=== PATIENT | female | born 1955 | race Caucasian/White ===

== ENCOUNTER → 2016-09-09 | Outpatient (CLI) | payer OTHER | END | disposition home or self-care (01) | LOC: RADMRIMAIN 09:29 | PROVIDERS: ATTEND Family Medicine | DX: Z53.9 Procedure and treatment not carried out, unspecified reason (principal) ==

== ENCOUNTER → 2017-03-14 | Outpatient (CLI) | payer OTHER ==
[2017-03-09 14:48] VITALS: BMI 54.1
[2017-03-14 12:14] VITALS: BP 121/68; PULSE 95; RESP 18; TEMP 98.9
--- NOTE | 2017-03-14 13:12 | P.HPIM ---
History of Present Illness H&P Date: 03/14/17 Chief Complaint: low back pain This is a 61-year-old patient referred by Dr. Lopez for chronic pain in low back without radiation to legs. Patient has been taking medications from primary care physician with some relief. Patient denies adverse drug effects from medications. Patient also denies new-onset weakness, bowel/bladder incontinence, or any other signs or symptoms of cauda equina syndrome. There are no signs of acute intoxication, and no indications of medication diversion or overuse. Patient notes that pain worsens significantly with standing straight and extension of the lumbar spine, and improves with rest, ice, and medication. Patient has used several types of medications for pain, including NSAIDS, OPIOIDS, TRAMADOL, ANTIDEPRESSANTS, and BENZODIAZEPINES. Patient HAS NOT had surgery. Patient HAS NOT had injections previously. Patient HAS had physical therapy recently. In addition to above, 13-point review of systems is also negative for chest pain , shortness of breath, changes in vision, changes in hearing, new onset weakness , abdominal pain, diarrhea, extreme fatigue, malaise, fever, skin changes, homicidal or suicidal ideation, or bowel or bladder incontinence. Vital Signs: Reviewed in EMR Gen: WDWN, AAOx3, NAD HEENT: NCAT, EOMI, hearing grossly normal Pulm: resp unlabored Abd: soft, NT, ND, obese Neck: supple, trachea midline ROM in flexion lumbar spine: reduced ROM in extension lumbar spine: reduced Lumbar paravertebral tenderness: + Facet loading: + bilateral, L > R SI joint tenderness: + L > R Fan's test: + L > R Straight leg raise: neg Neuro: CN II-XII grossly intact, muscle strength lower extremities PRESERVED Past Medical History Past Medical History: Diabetes Mellitus, GERD/Reflux, Hypertension, Pneumonia Additional Past Medical History / Comment(s): heart murmer, severe back pain History of Any Multi-Drug Resistant Organisms: None Reported Past Surgical History: Appendectomy, Tubal Ligation Additional Past Surgical History / Comment(s): bassam cataracts Past Anesthesia/Blood Transfusion Reactions: Motion Sickness Past Psychological History: No Psychological Hx Reported Smoking Status: Former smoker Past Alcohol Use History: None Reported Additional Past Alcohol Use History / Comment(s): quit smoking 25 yrs ago, started smoking age 18, < 1PPD Past Drug Use History: None Reported - Past Family History Father Family Medical History: Cancer Medications and Allergies Home Medications Medication Instructions Recorded Confirmed Type Albuterol Inhaler [Ventolin Hfa 2 puff INHALATION TID PRN 03/09/17 03/14/17 History Inhaler] Aspirin [Adult Low Dose Aspirin EC] 81 mg PO DAILY 03/09/17 03/14/17 History Cyclobenzaprine [Flexeril] 10 mg PO HS 03/09/17 03/14/17 History Fluticasone Propionate [Flovent 50 mcg INHALATION QAM 03/09/17 03/14/17 History Diskus] Ibuprofen 600 mg PO TID PRN 03/09/17 03/14/17 History Insulin Glargine [Lantus] 90 unit SQ HS 03/09/17 03/14/17 History Lisinopril-Hctz 20-25 mg 1 tab PO DAILY 03/09/17 03/14/17 History [Zestoretic 20-25] Lovastatin [Mevacor] 10 mg PO HS 03/09/17 03/14/17 History Pregabalin [Lyrica] 100 mg PO TID 03/09/17 03/14/17 History glipiZIDE [Glucotrol] 10 mg PO AC-BID 03/09/17 03/14/17 History metFORMIN HCL 1,000 mg PO BID 03/09/17 03/14/17 History Allergies Allergy/AdvReac Type Severity Reaction Status Date / Time No Known Allergies Allergy Verified 03/14/17 12:00 Physical Exam Vitals: Vital Signs Temp Pulse Resp BP 03/14/17 12:01 98.9 F 95 18 121/68 Results Comments: MRI lumbar spine dated May 2016 demonstrates a circumferential disc bulge of the annulus fibrosis of the L4-L5 level. At the L3-L4, L4-L5, and L5-S1 levels there are hypertrophic changes at the posterior facets. There is spondylolisthesis at the L3-L4 level with also a posterior pseudo-disc at this level as well. There is subarticular recess stenosis at the level of the L3 vertebra. Assessment and Plan (1) Lumbar spondylosis Current Visit: Yes Status: Chronic Code(s): M47.816 - SPONDYLOSIS W/O MYELOPATHY OR RADICULOPATHY, LUMBAR REGION SNOMED Code(s): 939100220 (2) Bulging lumbar disc Current Visit: Yes Status: Chronic Code(s): M51.26 - OTHER INTERVERTEBRAL DISC DISPLACEMENT, LUMBAR REGION SNOMED Code(s): 295590769 Plan: Plan: 1. Explanation: Opioid and psychological risk scores were reviewed. Diagnoses , prognoses, and multiple treatment options including but not limited to physical therapy, interventional therapies, adjuvant medical therapies, narcotic medication therapies, and surgery were discussed with the patient and all questions were answered to the patient's satisfaction. 2. Opioid agreement: no opioids prescribed today 3. Counseling: The patient was counseled extensively on BODY MASS INDEX, EXERCISE. Specifically, the patient was instructed regarding the importance of weight control, and exercise in the context of both chronic pain and overall health. 4. Procedures: bilateral lumbar MBB 5. Consultations: Dr. Swenson for possible bariatric surgery given patient's diabetes and severe low back pain 6. Investigations: none 7. Medications: none prescribed 8. Disposition: f/u for procedure as scheduled PQRS measures: 1-Patient's medications are documented in the chart. 2-Tobacco use is negative 3-Patient has not had a pneumococcal vaccine. 4-Advanced care planning discussed, patient unable to give. 5-Opioid contract NOT signed with the patient. 6-Pain positive, follow-up visit or procedure scheduled 7-Patient's blood pressure measured and documented, and WNL. 8-Patient's weight was measured, and body mass index ABOVE the normal limits, and counseling was done. Patient instructed to follow up with PCP. 9-Patient WAS NOT identified as an unhealthy alcohol user. Time with Patient: Greater than 30
== END | disposition home or self-care (01) ==
LOC: PNWHC3 11:23
PROVIDERS: ATTEND Anesthesiology
DX: G89.29 Other chronic pain (principal); M51.26 Other intervertebral disc displacement, lumbar region; M47.816 Spondylosis without myelopathy or radiculopathy, lumbar region; I10 Essential (primary) hypertension; E11.9 Type 2 diabetes mellitus without complications; Z79.4 Long term (current) use of insulin; Z87.891 Personal history of nicotine dependence
CPT/HCPCS: 99211

== ENCOUNTER 2017-03-27 08:41 | Day surgery (SDC) | payer OTHER ==
[2017-03-23 14:21] VITALS: BMI 54.7
[2017-03-27 09:22] VITALS: RESP 20; TEMP 98.1
[2017-03-27 09:35] LABS: Glucose,Whole Blood 140 mg/dL (75-99)
[2017-03-27] MEDS ORDERED: LACTATED RINGERS 1,000 ML IV ONE (09:37)
[2017-03-27] MEDS ORDERED: LACTATED RINGERS 1,000 ML IV SCH (09:45)
[2017-03-27] MEDS ORDERED: IV FLUID CONTINUATION 1,000 ML IV ONE (10:23)
[2017-03-27 10:30] LABS: Glucose,Whole Blood 119 mg/dL (75-99)
[2017-03-27 10:54] VITALS: BP 126/74; PULSE 88
--- NOTE | 2017-03-27 11:54 | FL ---
EXAMINATION TYPE: FL guided pain mgmt statistic DATE OF EXAM: 03/27/2017 CLINICAL HISTORY: Low back pain. TECHNIQUE: Fluoroscopy. COMPARISON: None. FINDINGS: Fluoroscopic guidance was provided during pain relief procedure performed by Dr. De La Cruz . A total of 26 seconds of fluoroscopic time was utilized during the procedure and 6 spot images are ac quired. Images acquired shows needle localization at multiple levels bilaterally in the lower lumbar spine. IMPRESSION: As Above.
--- NOTE | 2017-03-27 12:35 | P.PCN ---
Date of Procedure: 03/27/17 Surgeon: Fabiano De La Cruz Pathology: none sent Condition: stable Disposition: PACU Description of Procedure: PREOPERATIVE DIAGNOSIS: L3-L4, L4-L5, and L5-S1 spondylosis without myelopathy and facet arthropathy. POSTOPERATIVE DIAGNOSIS: L3-L4, L4-L5, and L5-S1 spondylosis without myelopathy and facet arthropathy. PROCEDURE DESCRIPTION: Patient presents for L3-L4, L4-L5 and L5-S1 diagnostic medial branch blocks under fluoroscopic guidance. The procedure is performed using fluoroscopic guidance during needle placement to assure proper position and maximize safety. ANESTHESIA: Local with 1% lidocaine; conscious sedation EBL: Minimal PROCEDURE INDICATION: Patient with lumbar facet arthropathy signs and symptoms, here for diagnostic medial branch block. Pt does not take any blood thinning medications. PROCEDURE DESCRIPTION: The patient was seen and identified in the preoperative area. Risks, benefits, complications, and alternatives were discussed with the patient (including but not limited to incomplete pain relief, bleeding, infection, nerve damage, and allergies to medications), the patient agreed to proceed with the procedure and signed the consent after all questions were answered. Patient was taken to the OR and time out was completed to verify proper patient, position, laterality of pain, and allergies. Pt was placed in the prone position and a pillow was placed under the abdomen to reduce lumbar lordosis. The lumbosacral area was prepped and draped in the usual sterile fashion. Using oblique fluoroscopy, the eye of the "Gordon dog" of right L4 vertebral body, which corresponds to the path of the medial branch originating from the level above, which is L3 in this case, was identified. Subsequently, a 22-gauge 5-inch spinal needle was inserted under fluoroscopic guidance toward the eye of the "Gordon dog" of the right L4 vertebral body, corresponding to the junction of the superior articular process and the transverse process of the pedicle of the same level. After needle tip confirmation on lateral view and after negative aspiration for CSF and blood and without paresthesias, 1 mL of a 6 ml solution of 0.5% preservative-free bupivacaine and 40 mg Kenalog was injected. Subsequently the needle was withdrawn intact and the same procedure was repeated for the right L4, right L5, left L3, left L4, and left L5 medial branches which together with right L3 medial branch correspond to the sensory innervation of the bilateral L3-L4, L4-L5, and L5-S1 facet joints. Needle was withdrawn intact after each injection. At the end of the procedure, the skin was cleansed and bandages were applied. COMPLICATIONS: None. DISPOSITION/PLAN: The patient taken to the recovery area after the procedure in a stable condition for observation. Patient was reexamined prior to discharge and there were no issues. Patient was discharged home, accompanied by an adult, after meeting discharged criteria. Discharge instructions were give to the patient by the staff. Patient was specifically instructed not to drive today and to rest for the rest of the day. If relief, plan to repeat LMBB bilateral at next visit.
== END 2017-03-27 11:06 | disposition home or self-care (01) ==
LOC: ORPAIN 08:41
PROVIDERS: ATTEND Anesthesiology
DX: G89.29 Other chronic pain (principal); M51.26 Other intervertebral disc displacement, lumbar region; M47.816 Spondylosis without myelopathy or radiculopathy, lumbar region; E11.9 Type 2 diabetes mellitus without complications; K21.9 Gastro-esophageal reflux disease without esophagitis; I10 Essential (primary) hypertension; Z79.82 Long term (current) use of aspirin; Z79.4 Long term (current) use of insulin; Z79.51 Long term (current) use of inhaled steroids; Z79.899 Other long term (current) drug therapy; Z87.891 Personal history of nicotine dependence
CPT/HCPCS: 64494; 64493; 64495; J2250; J3301; J2001

== ENCOUNTER 2017-04-20 08:47 | Day surgery (SDC) | payer OTHER ==
[2017-04-14 14:32] VITALS: BMI 53.6
[2017-04-20 09:34] VITALS: TEMP 97
[2017-04-20] MEDS: LACTATED RINGERS 1,000 ML IV SCH ×2 (09:38→09:56)
[2017-04-20 09:55] LABS: Glucose,Whole Blood 181 mg/dL (75-99)
--- NOTE | 2017-04-20 10:22 | P.PCN ---
Date of Procedure: 04/20/17 Procedure(s) Performed: PREOPERATIVE DIAGNOSIS : 1- Lumbar spondylosis with Facet Arthropathy without myelopathy . 2- Lumber degenerative disc disease POSTOPERATIVE DIAGNOSIS: 1- Lumbar spondylosis with Facet Arthropathy without myelopathy . 2- Lumber degenerative disc disease PROCEDURE: Diagnostic bilateral L3 -4 , L4 -5 , and L5-S1 medial branch block under fluoroscopy ANESTHESIA: Local with 1% lidocaine 6 ml , moderate sedation with intravenous Versed 2 mg and Fentanyl 50 mcg. EBL: Minimal COMPLICATION: None. IV FLUIDS: 100 mL of normal saline. PROCEDURE INDICATION: Chronic low back pain secondary to Facet arthropathy unresponsive to conservative treatment. PROCEDURE DESCRIPTION: the patient was seen and identified in the preop holding area , risks and benefits and possible complications of the procedure and alternative were discussed with the patient, and the patient agreed to proceed with the procedure and signed the consent IV was started and vital signs monitored during the procedure and fluoroscopy was used to maximize the benefit and accuracy of the needle placement, and sedation was given to decrease patient anxiety, patient was taken to the procedure room and placed in prone position vital signs monitored in the back prepped with chlorhexidine X3 then under strict sterile technique using a right oblique fluoroscopy ,the junction of the transverse process and the superior articulating process of the right L3- 4 , L4- 5, and L5-S1 vertebra which corresponding to the fluoroscopy image of the eye of the Gordon dog on the block side for the medial branches and subsequently , after local infiltration of skin and subcu tissuies with lidocaine 1% one mL at each level ,then 22- gauge 5 inches Quincke-type needles , 3 needle was used , each one of them placed at the junction of the base of the transverse process and the superior articular process at the appropriate level, and the needle was advanced until the periosteum contacted, needle placement confirmed with AP oblique and lateral view and after appropriate needle placement confirmed, and after negative aspiration for heme and CSF and there was no paresthesia 1-1/2 mL of Marcaine 0.5% mixed with 20 mg Kenalog , then half mL injected at each level after negative aspiration the needle subsequently removed and the same procedure repeated for the left side at left side at L3-4, L4- 5 and L5-S1 levels. At the end of the procedure and the needles removed and a bandage applied after the skin was cleaned the cleaning solution patient taken to recovery room in stable condition and monitors in the recovery room for 20-30 minutes and discharged home in stable condition after discharge criteria met and patient will follow up with the pain clinic in 2-4 weeks
[2017-04-20] MEDS ORDERED: IV FLUID CONTINUATION 1,000 ML IV ONE (10:31)
[2017-04-20 10:35] LABS: Glucose,Whole Blood 172 mg/dL (75-99)
[2017-04-20 10:41] VITALS: BP 122/70; PULSE 95; RESP 18
--- NOTE | 2017-04-20 10:43 | FL ---
Fluoroscopy INDICATION: Pain FINDINGS: Fluoroscopy time: 18 seconds. Images obtained: 4. IMPRESSIONS: 1. Documentation of fluoroscopy.
== END 2017-04-20 10:59 | disposition home or self-care (01) ==
LOC: ORPAIN 08:47
PROVIDERS: ATTEND Specialist
DX: G89.29 Other chronic pain (principal); M51.36 Other intervertebral disc degeneration, lumbar region; M47.816 Spondylosis without myelopathy or radiculopathy, lumbar region; E66.01 Morbid (severe) obesity due to excess calories; E11.9 Type 2 diabetes mellitus without complications; Z68.43 Body mass index [BMI] 50.0-59.9, adult
CPT/HCPCS: 64493; 64494; 64495; J2250; J3301; J3010; 99152

== ENCOUNTER → 2017-05-16 | Outpatient (CLI) | payer OTHER ==
[2017-05-16 11:24] VITALS: BP 134/67; PULSE 96; RESP 18; TEMP 97.6
--- NOTE | 2017-05-16 12:03 | P.PN ---
Subjective Progress Note Date: 05/16/17 Principal diagnosis: Lumbar spondylosis without myelopathy This is a 62-year-old morbidly obese female with history of axial lower back pain with no radiation to the lower extremities. The patient had significant relief of her pain more than 80% after the diagnostic lumbar medial branch block that she had recently. She denies any new neurologic changes since last time she was seen. Objective - Vital Signs Vital signs: Vital Signs Temp 97.6 F 05/16/17 11:16 Pulse 96 05/16/17 11:16 Resp 18 05/16/17 11:16 BP 134/67 05/16/17 11:16 Pulse Ox 96 05/16/17 11:16 Intake & Output 05/15/17 05/16/17 05/16/17 18:59 06:59 18:59 Weight 144.696 kg - Constitutional General appearance: Present: morbidly obese - EENT Eyes: Present: PERRLA - Respiratory Respiratory: bilateral: CTA - Cardiovascular Rhythm: regular - Psychiatric Psychiatric: Present: A&O x's 3, appropriate affect, intact judgment & insight ( Tenderness in the lumbar paravertebral area bilaterally.) Assessment and Plan Plan: This is a 62-year-old diabetic morbidly obese female who got significant relief of her pain after a diagnostic medial branch block. The patient is willing to proceed with the lumbar medial branch radio frequency ablation on the left side first. The procedure was explained to the patient and her questions were answered. The patient denies taking any anticoagulants and she has a history of diabetes.
== END | disposition home or self-care (01) ==
LOC: PNWHC3 10:36
PROVIDERS: ATTEND Anesthesiology
DX: M47.816 Spondylosis without myelopathy or radiculopathy, lumbar region (principal); E11.9 Type 2 diabetes mellitus without complications; E66.01 Morbid (severe) obesity due to excess calories; Z68.43 Body mass index [BMI] 50.0-59.9, adult
CPT/HCPCS: 99211

== ENCOUNTER 2017-06-15 09:01 | Day surgery (SDC) | payer OTHER ==
[2017-06-12 15:25] VITALS: BMI 56.7
[2017-06-15] MEDS ORDERED: LIDOCAINE 1% 20 ML VIAL (10MG/ML) FOR IV START INTRADERMA ONE (10:52)
[2017-06-15] MEDS: LACTATED RINGERS 1,000 ML IV SCH ×2 (11:08→11:25)
[2017-06-15 11:09] VITALS: RESP 16; TEMP 97.5
[2017-06-15 11:13] LABS: Glucose,Whole Blood 164 mg/dL (75-99)
--- NOTE | 2017-06-15 11:54 | P.PCN ---
Date of Procedure: 06/15/17 Procedure(s) Performed: PREOPERATIVE DIAGNOSIS: 1-Lumbar Spondylosis with Facet Arthropathy without myelopathy. 2- Lumber degenerative disc disease. POSTOPERATIVE DIAGNOSIS: 1- Lumbar Spondylosis with Facet Arthropathy without myelopathy. 2- Lumber degenerative disc disease. PROCEDURES : Left Radiofrequency thermocoagulation, L3-L4, L4-L5, and L5-S1 medial branch, with fluoroscopic guidance ANESTHESIA: Moderate sedation with intravenous versed 2 mg and fentaneyl 50 mcg and local infiltration with lidocaine 1% 6 ml EBL: Minimal PROCEDURE INDICATION: The patient with low back pain secondary to lumbar facet arthropathy who had more than 50% relief of her pain with previous diagnostic lumbar medial branch block with bupivacaine. PROCEDURE DESCRIPTION / TECHNIQUE: The patient was seen and identified in the preoperative area. Risks, benefits, complications, including but not limited to risk of infection ,bleeding , allergic reactions to the medications and no complete pain releife , and alternatives were discussed with the patient, the patient agreed to proceed with the procedure and signed the consent. IV was started. Vital signs remained stable throughout the procedure. Patient was taken to the OR and time out was completed. The patient was placed in the prone position on the procedure table. The lumber area was prepped and draped in the usual sterile fashion. . Vital signs were closely monitored during the procedure .IV sedation was used during the procedure to decrease patients anxiety. Using AP and then oblique fluoroscopy, the ``eye of the Gordon dog corresponding to the connection between the superior and transverse articular processes of left L3, L4, and L5 were identified, marked, and localized with 1 % lidocaine. Subsequently, a 18 [id number] radiofrequency cannula with a 10- mm active tip was advanced guided by fluoroscopy to each of the ``eyes of the Gordon dog at left L3, L4, and L5. Each site then underwent sensory testing at 50 Hz and 0 to 1 volt and motor testing at 2.5 Hz and 0 to 3 volt with local stimulation, but no radicular symptoms down the legs. Thereafter the left L3-4, L4-5, and L5-S1 sites underwent radiofrequency thermocoagulation at 80 degrees celsius for 90 seconds after injecting 0.5 ml of PF lidocaine 1%. then After the thermocoagulation done , 1 ml of the block solution containing Kenalog 40 mg and 3 ml of marcain 0.5% was injected at the left L3-4 , L4-5 , and L5-S1, levels after negative aspiration of CSF and blood and with no paresthesias. Cannulas were retracted while injecting lidocaine 1% until the needle is out. At the end of the procedure, the skin was cleansed and bandages were applied. COMPLICATIONS: No acute complications. DISPOSITION / PLANS: The patient was placed in a supine position and transferred to the recovery area in a stable condition for observation and was discharged from the recovery room after meeting discharge criteria. Home discharge instructions given to the patient by the staff. The patient was reexamined prior to discharge. The patient will schedule a follow up in the clinic in 2-4 weeks.
[2017-06-15] MEDS ORDERED: IV FLUID CONTINUATION 1,000 ML IV ONE (12:06)
--- NOTE | 2017-06-15 12:13 | FL ---
Fluoroscopy INDICATION: Pain FINDINGS: Fluoroscopy time: 28 seconds. Images obtained: 3. IMPRESSIONS: 1. Documentation of fluoroscopy.
[2017-06-15 12:22] VITALS: BP 135/64; PULSE 80
== END 2017-06-15 12:37 | disposition home or self-care (01) ==
LOC: ORPAIN 09:01
PROVIDERS: ATTEND Specialist
DX: M47.816 Spondylosis without myelopathy or radiculopathy, lumbar region (principal); I10 Essential (primary) hypertension; E11.9 Type 2 diabetes mellitus without complications; K21.9 Gastro-esophageal reflux disease without esophagitis; M51.36 Other intervertebral disc degeneration, lumbar region
CPT/HCPCS: 64636 ×2; 64635; J2250; J3301; J3010; 99152

== ENCOUNTER 2017-07-17 09:23 | Day surgery (SDC) | payer OTHER ==
[2017-07-12 10:18] VITALS: BMI 56.5
[2017-07-17 10:11] VITALS: RESP 16; TEMP 98.2
[2017-07-17] MEDS ORDERED: LACTATED RINGERS 1,000 ML IV SCH (10:15)
[2017-07-17 10:32] LABS: Glucose,Whole Blood 217 mg/dL (75-99)
[2017-07-17] MEDS ORDERED: IV FLUID CONTINUATION 1,000 ML IV ONE (11:14)
[2017-07-17 11:24] LABS: Glucose,Whole Blood 193 mg/dL (75-99)
[2017-07-17 11:37] VITALS: BP 100/64; PULSE 94
--- NOTE | 2017-07-17 11:38 | FL ---
EXAMINATION TYPE: FL guided pain mgmt statistic DATE OF EXAM: 07/17/2017 HISTORY: Pain 1 image scanned 3secs fl time
--- NOTE | 2017-07-25 15:27 | P.PCN ---
Date of Procedure: 07/17/17 Surgeon: Kenny Lanza Description of Procedure: Procedure(s) Performed: PREOPERATIVE DIAGNOSIS: 1. Lumbar Spondylosis with Facet Arthropathy without myelopathy. 2-. Lumber degenerative disc disease POSTOPERATIVE DIAGNOSIS: 1. Lumbar Spondylosis with Facet Arthropathy without myelopathy. 2-. Lumber degenerative disc disease PROCEDURES: Right Radiofrequency thermocoagulation, L4,L5, Sacral Ala medial branch, with fluoroscopic guidance SURGEON: Kenny Lanza MD. ANESTHESIA: Moderate sedation with intravenous versed 2 mg and fentanyl 100 mcg and local infiltration with lidocaine 1% 4 ml EBL: Minimal PROCEDURE INDICATION: The patient with low back pain secondary to lumbar facet arthropathy who had more than 50% relief of pain with previous diagnostic lumbar medial branch block with bupivacaine. PROCEDURE DESCRIPTION / TECHNIQUE: The patient was seen and identified in the preoperative area. Risks, benefits, complications, including but not limited to risk of infection ,bleeding , allergic reactions to the medications and no complete pain releife , and alternatives were discussed with the patient, the patient agreed to proceed with the procedure and signed the consent. IV was started. The operative site was marked. Patient was taken to the OR and time out was completed. The patient was placed in the prone position on the procedure table. The lumber area was prepped and draped in the usual sterile fashion. . Vital signs were closely monitored during the procedure .IV sedation was used during the procedure to decrease patients anxiety. Using AP and then oblique fluoroscopy, the ``eye of the Gordon dog corresponding to the connection between the superior and transverse articular processes of the above-mentioned levels were identified, marked, and localized with 1% lidocaine. Subsequently, a [id number] radiofrequency cannula with a 10-mm active tip was advanced guided by fluoroscopy to each of the ``eyes of the Gordon dog at each site then underwent sensory testing at 50 Hz and 0 to 1 volt and motor testing at 2.5 Hz and 0 to 3 volt with local stimulation, but no radicular symptoms down the legs. Then the sites underwent radiofrequency thermocoagulation at 80 degrees celsius for 90 seconds after injecting 0.5 ml of PF lidocaine 1%. then After the thermocoagulation done , 1 ml of the block solution containing depomedrol 40 mg and 4 ml of maraine 0.5 % was injected at each levels after negative aspiration of CSF and blood and with no paresthesias. Cannulas were retracted while injecting lidocaine 1% until the needle is out.. At the end of the procedure, the skin was cleansed and bandages were applied. COMPLICATIONS: No acute complications. DISPOSITION / PLANS: The patient was placed in a supine position and transferred to the recovery area in a stable condition for observation and was discharged from the recovery room after meeting discharge criteria. Home discharge instructions given to the patient by the staff. The patient was reexamined prior to discharge. She will follow-up for reevaluation as needed..
== END 2017-07-17 11:46 | disposition home or self-care (01) ==
LOC: ORPAIN 09:23
PROVIDERS: ATTEND Pain Medicine Pain Medicine
DX: M47.816 Spondylosis without myelopathy or radiculopathy, lumbar region (principal); M51.36 Other intervertebral disc degeneration, lumbar region; I10 Essential (primary) hypertension; E11.9 Type 2 diabetes mellitus without complications; K21.9 Gastro-esophageal reflux disease without esophagitis
CPT/HCPCS: 64635; 64636; J2250; J1030; J2001; J3010; 99152

== ENCOUNTER → 2017-07-26 | Outpatient (CLI) | payer OTHER ==
--- NOTE | 2017-07-26 14:39 | US ---
EXAMINATION TYPE: US transvaginal DATE OF EXAM: 07/26/2017 COMPARISON: NONE CLINICAL HISTORY: N95.0 Postmenopausal Bleeding x 2 months; ; Diabetes, HTN; Ht5'2,[id number] TECHNIQUE: Transvaginal (TV per order Date of LMP: at age 48 EXAM MEASUREMENTS: Uterus: 14.1 x 10.1 x 10.9cm Endometrial Stripe: 2.5cm Right Ovary: not seen Left Ovary: not seen Exam is technically limited due to large body habitus. 1. Uterus: enlarged; heterogeneous myometrium; multiple Nabothian cysts in cervix with largest = 1.2 x 0.9 x 0.8cm 2. Endometrium: irregular borders, heterogeneous appearance, abnormally thickened for postmenopause. 3. Right Ovary: not seen 4. Left Ovary: not seen 5. Bilateral Adnexa: wnl 6. Posterior cul-de-sac: wnl IMPRESSION: 1. Nabothian cysts. 2. Nonvisualization of the ovaries.
== END | disposition home or self-care (01) ==
LOC: RADUSWWP 10:58
PROVIDERS: ATTEND Family Medicine
DX: N88.8 Other specified noninflammatory disorders of cervix uteri (principal)
CPT/HCPCS: 76830

== ENCOUNTER → 2017-08-14 | Outpatient (CLI) | payer MEDICARE, OTHER ==
[2017-08-14 14:05] VITALS: BP 133/68; PULSE 100; RESP 20
--- NOTE | 2017-08-14 14:25 | P.PAINPG ---
Subjective Progress Note Date: 08/14/17 This is follow-up visit for this patient with a history of severe and chronic low back pain secondary to , lumbar spondylosis with facet arthropathy without myelopathy, We have done an interventional pain procedure radiofrequency ablation of the medial branch lumbar area which was done in May 2017, and June 2017 we did the radiofrequency of the medial branch on the right side, currently she is complaining of localized pain in the lumbar area on the right side, he denies any motor or sensory deficit she denies any change in the bowel movement or urination The patient currently on Flexeril 10 mg daily at bedtime Lyrica 100 mg 3 times a day and Motrin 600 mg 3 times a day from her primary care Patient denies any side effect of the medication , patient denies any excessive drowsiness or sleepiness, patient denies any suicidal ideation, Patient reported that the current medication is helping to control the pain and improve the activity of daily livings, Patient denies any motor or sensory deficit, denies any change in the bowel movement or urination, patient denies any fever or night sweats Objective - Vital Signs Vital signs: Vital Signs Temp Pulse 100 08/14/17 13:42 Resp 20 08/14/17 13:42 BP 133/68 08/14/17 13:42 Pulse Ox 95 08/14/17 13:42 Intake & Output 08/13/17 08/14/17 08/14/17 18:59 06:59 18:59 Weight 144.696 kg - Exam Physical Examinations : 1-Constitutiona : Cooperative , not in acute distress . 2-HEENT : nech ; supple , no Lymphadenopathy , normal thyroid size . eyes : no ptosis , no icterus , no photophobia . ENT : normal of hearing , normal oropharynx , no Thrush . 3- Respiratory : Chest clear to auscultations Bilaterally , no wheezing , no Rhonchi . 4- Cardiovascular : regular rate and rhythem , S1 , S2 , no S3 , no S4. 5- Gastrointestinal : abdomen soft no tenderness , bowel sounds , no organomegally . 6- Genitourinary : Defferred . 7- neurologic : Cranial nerve II to XII intact , no focal neurological deffecit . 8-psychatric : alert , oriented X 3 , appropriate affect , intact judgment and insight . 9-Lymphatic : no Lymphadenopathy . 10- musculoskeltal : , Lumber spine = normal moter stegnth lower extremities ,thigh and legs .5/5 deep tendon reflexes : normal Knee Jerk , normal ankle Jerk . 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, he could benefit from right-sided iliolumbar ligament steroid injection which will be done under fluoroscopy guidance at the earliest convenient for the patient, she should continue to use her current medication Lyrica 100 mg 3 times a day and Flexeril 10 mg daily at bedtime and Motrin 600 mg 3 times a day she is getting prescriptions from her primary care Time with Patient: Less than 30 PQRS Measure Charge Sheet Measure #130: Documentation of Current Meds in Medical Chart: Patient's medications documented in chart Measure #226: Tobacco Use: Screen & Cessation Intervention: Pt not a tobacco user Measure #111: Pneumonia Vaccination: Pneumococcal vaccine administered or previously received Measure #47: Advance Care Plan: Advance care planning discussed & documented, plan or surrogate given Measure #412: Opioid Treatment Agreement: No documentation of signed opioid treatment agreement Measure #408: Opioid Therapy Follow-up Evaluation: Patient had NO f/u eval minimum every 3 months during opioid therapy Measure #317: Preventitive Care & Scrn High Bld Press & F/U: Normal blood pressure, f/u not required Measure #128: Body Mass Index (BMI) Screening & Follow-up: BMI documented ABOVE normal parameters - f/u documented Measure #131: Pain Assessment & Follow-up: Pain positive & plan documented Measure #431: Unhealthy Alcohol Use Preventative Care & Scrn: Patient not identified as an unhealthy alcohol user PQRS Narrative: Smoking Status Former smoker Do You Want the Pneumonia Vaccine Up to Date Vaccine AT THIS TIME? Blood Pressure 133/68 Pain Intensity [Right Lower 10 Back] Scale Used Numeric (1 - 10) Hx Alcohol Use (MH) No Home Medications: Ambulatory Orders Albuterol Inhaler [Ventolin Hfa Inhaler] 2 puff INHALATION TID PRN 03/09/17 Aspirin [Adult Low Dose Aspirin EC] 81 mg PO DAILY 03/09/17 Cyclobenzaprine [Flexeril] 10 mg PO HS 03/09/17 Fluticasone Propionate [Flovent Diskus] 50 mcg INHALATION QAM 03/09/17 Ibuprofen 600 mg PO TID PRN 03/09/17 Insulin Glargine [Lantus] 90 unit SQ HS 03/09/17 Lisinopril-Hctz 20-25 mg [Zestoretic 20-25] 1 tab PO DAILY 03/09/17 Lovastatin [Mevacor] 10 mg PO HS 03/09/17 Pregabalin [Lyrica] 100 mg PO TID 03/09/17 glipiZIDE [Glucotrol] 10 mg PO AC-BID 03/09/17 metFORMIN HCL 1,000 mg PO BID 03/09/17 Insulin Aspart [NovoLOG Flexpen] 7 units SQ BID-W/MEALS 04/14/17 Controlled Substance Measures - Controlled Substance Measures Is patient prescribed a controlled substance at discharge?: No When asked, does pt state using other controlled substances?: No If prescribed controlled substance>3 days was MAPS reviewed?: No If Rx opioid, was Start Talking consent form obtained?: No If opioid is for acute pain is fill amount 7 days or less?: No Was information provided regarding opioid addiction?: No
== END | disposition home or self-care (01) ==
LOC: PNWHC3 12:24
PROVIDERS: ATTEND Specialist
DX: G89.29 Other chronic pain (principal); M47.816 Spondylosis without myelopathy or radiculopathy, lumbar region; Z98.890 Other specified postprocedural states; Z87.891 Personal history of nicotine dependence; Z79.899 Other long term (current) drug therapy; Z79.82 Long term (current) use of aspirin; Z79.1 Long term (current) use of non-steroidal anti-inflammatories (NSAID); Z79.4 Long term (current) use of insulin
CPT/HCPCS: 99211

== ENCOUNTER 2017-09-04 09:17 | Day surgery (SDC) | payer MEDICARE, OTHER ==
[2017-08-29 11:03] VITALS: BMI 56.5
[~2017-09-04 09:17] MED LIST: LACTATED RINGERS 1,000 ML IV SCH
[2017-09-04] MEDS ORDERED: LIDOCAINE 1% 20 ML VIAL (10MG/ML) FOR IV START INTRADERMA ONE (09:51)
[2017-09-04 09:54] LABS: Glucose,Whole Blood 261 mg/dL (75-99)
[2017-09-04 10:01] VITALS: RESP 18; TEMP 97.8
[2017-09-04] MEDS ORDERED: INSULIN ASPART 100 UNIT/ML 1 ML 10 ML VIAL SQ ONE (10:40)
--- NOTE | 2017-09-04 11:00 | P.PCN ---
Date of Procedure: 09/04/17 Preoperative Diagnosis: Lower back pain due to lumbar spondylosis without myelopathy, myofascial pain, morbid obesity. Postoperative Diagnosis: Same as above Anesthesia: other (Lidocaine 1% and moderate IV sedation with Versed and fentanyl) Surgeon: Lu Corley Pathology: none sent Condition: stable Disposition: PACU Description of Procedure: The patient was seen in the preop holding area consent was obtained then she was brought into the procedure 1 placed in prone position. Skin was prepped with ChloraPrep and draped in a sterile manner. Lidocaine 1% was used to numb the skin up at the target point that was identified as follows: The AP view of fluoroscopy was used to identify the transverse processes of L5 on the right side and at the line connecting the transverse process with the right iliac crest the target point was chosen then I used 5 inch 22-gauge Quincke spinal needle to go through the skin perpendicularly after contacting the iliac crest at this level then the needle walked slightly superior at the same level of the iliac crest after that I injected 5 MLS of ropivacaine 0.5% +20 mg of Kenalog.. I used an overdose of Kenalog because of the patient's history of diabetes and causing more preop blood sugar was 261 for which we gave 5 units of regular insulin subcu. The patient tolerated procedure well and was taken to PACU in stable condition. We will see the patient as a follow-up in the pain clinic in a few weeks.
[2017-09-04 11:08] VITALS: BP 130/92
[2017-09-04] MEDS ORDERED: IV FLUID CONTINUATION 1,000 ML IV ONE (11:11)
[2017-09-04 11:41] VITALS: PULSE 93
--- NOTE | 2017-09-04 12:51 | FL ---
Fluoroscopy HISTORY: Pain 6 seconds fluoroscopy time supplied to the referring clinician. 2 intraoperative C-arm images docume nt the procedure. See dictated report from anesthesia.
== END 2017-09-04 11:49 | disposition home or self-care (01) ==
LOC: ORPAIN 09:17
PROVIDERS: ATTEND Anesthesiology
DX: M47.816 Spondylosis without myelopathy or radiculopathy, lumbar region (principal); M79.1 Myalgia; E66.01 Morbid (severe) obesity due to excess calories; Z68.43 Body mass index [BMI] 50.0-59.9, adult; E11.9 Type 2 diabetes mellitus without complications; I10 Essential (primary) hypertension; Z79.4 Long term (current) use of insulin
CPT/HCPCS: 20550; J2250; J3301; J3010; 99152

== ENCOUNTER → 2017-09-15 | Outpatient (CLI) | payer MEDICARE, OTHER ==
[2017-09-15 10:09] LABS: Basophils # (A) 0.1 k/uL (0-0.2); Basophils % (A) 1 %; Eosinophils # (A) 0.4 k/uL (0-0.7); Eosinophils % (A) 4 %; HCT 42.4 % (34.0-46.0); HGB 13.5 gm/dL (11.4-16.0); Lymphocytes # (A) 3.4 k/uL (1.0-4.8); Lymphocytes % (A) 30 %; MCH 31.2 pg (25.0-35.0); MCHC 31.8 g/dL (31.0-37.0); MCV 98.1 fL (80.0-100.0); Mean Platelet Volume 7.5; Monocytes # (A) 0.6 k/uL (0-1.0); Monocytes % (A) 5 %; Neutrophils # (A) 6.7 k/uL (1.3-7.7); Neutrophils % (A) 59 %; Platelet Count 313 k/uL (150-450); RBC 4.32 m/uL (3.80-5.40); RDW 14.4 % (11.5-15.5); WBC 11.4 k/uL (3.8-10.6)
== END | disposition home or self-care (01) ==
LOC: LABPAT 09:50
PROVIDERS: ATTEND Obstetrics & Gynecology
DX: Z01.812 Encounter for preprocedural laboratory examination (principal)
CPT/HCPCS: 36415; 85025

== ENCOUNTER → 2017-09-15 | Outpatient (CLI) | payer MEDICARE, OTHER ==
--- NOTE | 2017-09-15 09:55 | XR ---
EXAMINATION TYPE: XR chest 2V DATE OF EXAM: 09/15/2017 COMPARISON: NONE HISTORY: Difficulty breathing TECHNIQUE: Frontal and lateral views of the chest are obtained. FINDINGS: There is no focal air space opacity, pleural effusion, or pneumothorax seen. The cardiac silhouette size is within normal limits. The osseous structures are intact. Moderate multilevel deg enerative changes of the thoracic spine are seen. IMPRESSION: No acute cardiopulmonary process.
== END | disposition home or self-care (01) ==
LOC: RADXRMAIN 09:32
PROVIDERS: ATTEND Family Medicine
DX: R06.02 Shortness of breath (principal)
CPT/HCPCS: 71046

== ENCOUNTER 2017-09-20 05:58 | Day surgery (SDC) | payer MEDICARE, OTHER ==
[2017-09-12 16:05] VITALS: BMI 56.5
--- NOTE | 2017-09-19 16:38 | P.HPOB ---
History of Present Illness H&P Date: 09/19/17 Chief Complaint: Postmenopausal bleeding Mitali is a 62-year-old female who has postmenopausal bleeding. Ultrasound was done through her primary care doctor that showed a grossly enlarged uterus with thickened endometrium suspicious for very least hyperplasia. Need to rule out cancer. Discussion with the patient was held in the office and at the time of our discussion the decision to do a D&C rather than endometrial biopsy was done due to her large size and positioning issues. This is also done to better evaluate the lining of the uterus and we'll plan to do a Pap smear at the same time. Risks/benefits/alternatives to this procedure were discussed with the patient in detail and all questions were answered for her prior to proceeding to the operating room. Dr. Lopez her PCP cleared her for surgery as she has multiple medical problems. She is taking multiple medications for hypertension and diabetes as well as hypercholesterolemia. Past Medical History Past Medical History: Diabetes Mellitus, GERD/Reflux, Hyperlipidemia, Hypertension, Pneumonia Additional Past Medical History / Comment(s): heart murmur, severe back pain, POST MENOPAUSAL BLEEDING History of Any Multi-Drug Resistant Organisms: None Reported Past Surgical History: Appendectomy, Tubal Ligation Additional Past Surgical History / Comment(s): bassam cataracts, PAIN CLINIC PROCEDURES. Past Anesthesia/Blood Transfusion Reactions: No Reported Reaction Smoking Status: Former smoker - Past Family History Father Family Medical History: Cancer Medications and Allergies Home Medications Medication Instructions Recorded Confirmed Type Albuterol Inhaler [Ventolin Hfa 2 puff INHALATION TID PRN 03/09/17 09/12/17 History Inhaler] Aspirin [Adult Low Dose Aspirin EC] 81 mg PO DAILY 03/09/17 09/12/17 History Cyclobenzaprine [Flexeril] 10 mg PO HS 03/09/17 09/12/17 History Fluticasone Propionate [Flovent 50 mcg INHALATION QAM 03/09/17 09/12/17 History Diskus] Ibuprofen 600 mg PO TID PRN 03/09/17 09/12/17 History Insulin Glargine [Lantus] 90 unit SQ HS 03/09/17 09/12/17 History Lisinopril-Hctz 20-25 mg 1 tab PO DAILY 03/09/17 09/12/17 History [Zestoretic 20-25] Lovastatin [Mevacor] 10 mg PO HS 03/09/17 09/12/17 History Pregabalin [Lyrica] 100 mg PO TID 03/09/17 09/12/17 History glipiZIDE [Glucotrol] 10 mg PO AC-BID 03/09/17 09/12/17 History metFORMIN HCL 1,000 mg PO BID 03/09/17 09/12/17 History Insulin Aspart [NovoLOG Flexpen] 7 units SQ BID-W/MEALS 04/14/17 09/12/17 History Allergies Allergy/AdvReac Type Severity Reaction Status Date / Time No Known Allergies Allergy Verified 09/12/17 16:02 Exam Osteopathic Statement: *. No significant issues noted on an osteopathic structural exam other than those noted in the History and Physical/Consult. - OBG Physical Exam Abdomen: Exam is somewhat limited due to morbid obesity Morbidly obese Vagina: Exam deferred until the operating room due to her morbid obesity
[~2017-09-20 05:58] MED LIST changes: +ONDANSETRON 4 MG/2 ML VIAL IVP PRN; +Pre Op ABX Message 1 EACH MISC MISCELLANE ONE; +fentaNYL (PF) 50 MCG/ML 2 ML AMP IV PRN
[2017-09-20 06:40] LABS: Glucose,Whole Blood 126 mg/dL (75-99)
[2017-09-20] MEDS ORDERED: MIDAZOLAM 2 MG/2 ML VIAL ONE (07:30)
[2017-09-20] MEDS ORDERED: KETOROLAC 30 MG/ML 1 ML VIAL ONE (07:30)
[2017-09-20] MEDS ORDERED: fentaNYL (PF) 50 MCG/ML 2 ML AMP ONE (07:30)
[2017-09-20] MEDS ORDERED: SUCCINYLCHOLINE CHLORIDE 100 MG/5 ML SYR IV ONE (07:30)
[2017-09-20] MEDS ORDERED: PHENYLEPHRINE-0.9% NACL SYG 1 MG/10 ML SYRINGE ONE (07:30)
[2017-09-20] MEDS ORDERED: PROPOFOL 10 MG/ML 20 ML VIAL IV ONE (07:30)
--- NOTE | 2017-09-20 08:11 | P.OP ---
Date of Procedure: 09/20/17 Preoperative Diagnosis: post menopausal bleeding Postoperative Diagnosis: same Procedure(s) Performed: d&c with hysteroscopy Anesthesia: WENDY Surgeon: Lobo Ibarra Estimated Blood Loss (ml): 3 Pathology: other (uterine currettings) Condition: stable Disposition: same day Operative Findings: limited visualization due to patient size and body habitus. technically very difficult procedure. no gross pathology seen with hysteroscopy Description of Procedure: Taken to O.R. where general anasthesia was adaquate. placed in dorsal lithotomy position and a bivalve speculum was needed to be able to visualize the cervix which was very posterior and had limited descent from back of vagina. Once grasped a pap smear was obtained and then it was dilated and camera was inserted but could not see all the way to fundus clearly. however, no proliferation was noted either. camera was then removed and sharp currettings of the uterus were obtained. minimal tissue was returned with currettings. lining not as thick as was reported on U/S and no evidence of polyp. once tissue was obtained it was placed on telfa paper and sent to pathology. all instruments were then removed and she was taken to recovery room in stable condition. she tolerated the procedure very well. Plan - Discharge Summary New Discharge Prescriptions: New Ibuprofen [Motrin] 600 mg PO Q6HR PRN #30 tab PRN Reason: Pain No Action Insulin Glargine [Lantus] 90 unit SQ HS Albuterol Inhaler [Ventolin Hfa Inhaler] 2 puff INHALATION TID PRN PRN Reason: sob Pregabalin [Lyrica] 100 mg PO TID Lovastatin [Mevacor] 10 mg PO HS Ibuprofen 600 mg PO TID PRN PRN Reason: Pain glipiZIDE [Glucotrol] 10 mg PO AC-BID Lisinopril-Hctz 20-25 mg [Zestoretic 20-25] 1 tab PO DAILY Cyclobenzaprine [Flexeril] 10 mg PO HS Aspirin [Adult Low Dose Aspirin EC] 81 mg PO DAILY metFORMIN HCL 1,000 mg PO BID Fluticasone Propionate [Flovent Diskus] 50 mcg INHALATION QAM Insulin Aspart [NovoLOG Flexpen] 7 units SQ BID-W/MEALS Discharge Medication List Albuterol Inhaler [Ventolin Hfa Inhaler] 2 puff INHALATION TID PRN 03/09/17 [ History] Aspirin [Adult Low Dose Aspirin EC] 81 mg PO DAILY 03/09/17 [History] Cyclobenzaprine [Flexeril] 10 mg PO HS 03/09/17 [History] Fluticasone Propionate [Flovent Diskus] 50 mcg INHALATION QAM 03/09/17 [History] Ibuprofen 600 mg PO TID PRN 03/09/17 [History] Insulin Glargine [Lantus] 90 unit SQ HS 03/09/17 [History] Lisinopril-Hctz 20-25 mg [Zestoretic 20-25] 1 tab PO DAILY 03/09/17 [History] Lovastatin [Mevacor] 10 mg PO HS 03/09/17 [History] Pregabalin [Lyrica] 100 mg PO TID 03/09/17 [History] glipiZIDE [Glucotrol] 10 mg PO AC-BID 03/09/17 [History] metFORMIN HCL 1,000 mg PO BID 03/09/17 [History] Insulin Aspart [NovoLOG Flexpen] 7 units SQ BID-W/MEALS 04/14/17 [History] Ibuprofen [Motrin] 600 mg PO Q6HR PRN #30 tab 09/20/17 [Rx] Follow up Appointment(s)/Referral(s): Lobo Ibarra DO [Doctor of Osteopathic Medicine] - 1 Week Activity/Diet/Wound Care/Special Instructions: no heavy lifting, limit stairs and driving, pelvic rest. call for any high temps , heavy bleeding, or severe pain Discharge Disposition: HOME SELF-CARE
[2017-09-20 08:33] VITALS: TEMP 97.2
[2017-09-20 08:40] LABS: Glucose,Whole Blood 113 mg/dL (75-99)
[2017-09-20 09:29] VITALS: RESP 20
[2017-09-20] MEDS ORDERED: LACTATED RINGERS 1,000 ML IV ONE (09:29)
[2017-09-20 10:02] VITALS: BP 109/63; PULSE 78
== END 2017-09-20 10:30 | disposition home or self-care (01) ==
LOC: OR 05:58
PROVIDERS: ATTEND Obstetrics & Gynecology
DX: N84.0 Polyp of corpus uteri (principal); N87.9 Dysplasia of cervix uteri, unspecified; N95.0 Postmenopausal bleeding; E11.9 Type 2 diabetes mellitus without complications; K21.9 Gastro-esophageal reflux disease without esophagitis; E78.5 Hyperlipidemia, unspecified; I10 Essential (primary) hypertension; E66.01 Morbid (severe) obesity due to excess calories; Z68.43 Body mass index [BMI] 50.0-59.9, adult; Z79.82 Long term (current) use of aspirin; Z79.51 Long term (current) use of inhaled steroids; Z79.4 Long term (current) use of insulin; Z79.899 Other long term (current) drug therapy; Z87.891 Personal history of nicotine dependence; Z98.51 Tubal ligation status; Z80.9 Family history of malignant neoplasm, unspecified
CPT/HCPCS: 58558; 81025; 88305; J2250; J2405; J3010; J1885; J2370; J0330; J2704

== ENCOUNTER → 2017-09-28 | Outpatient (CLI) | payer MEDICARE, OTHER ==
[2017-09-28 12:31] VITALS: BP 138/79; PULSE 97; RESP 20
--- NOTE | 2017-09-28 13:20 | P.PN ---
Subjective Progress Note Date: 09/28/17 Principal diagnosis: Lumbar spondylosis without myelopathy Morbid obesity Diabetes This is a 62-year-old female with history of axial lower back pain status post RFA on both sides of the spine for the medial branches. The patient's pain improves on the left side however her pain on the right side is still severe as she states, especially when she sits for a few minutes. She also failed to respond to the ileo-lumbar ligament injection. She denies any bowel or bladder dysfunction. By physical exam today she has normal muscle strength in the lower extremities and normal sensation. She has significant tenderness around the right sacroiliac joint. Objective - Vital Signs Vital signs: Vital Signs Temp Pulse 97 09/28/17 12:25 Resp 20 09/28/17 12:25 BP 138/79 09/28/17 12:25 Pulse Ox 94 L 09/28/17 12:25 Intake & Output 09/27/17 09/28/17 09/28/17 18:59 06:59 18:59 Weight 144.696 kg - EENT Eyes: Present: PERRLA - Respiratory Respiratory: bilateral: CTA - Cardiovascular Rhythm: regular Heart sounds: normal: S1, S2 - Neurologic Neurologic: Present: CNII-XII intact - Psychiatric Psychiatric: Present: A&O x's 3, appropriate affect, intact judgment & insight Assessment and Plan Plan: The patient may have right sacroiliitis and I will schedule her to have right sacroiliac joint steroid injection under fluoroscopic guidance.
== END | disposition home or self-care (01) ==
LOC: PNWHC3 11:21
PROVIDERS: ATTEND Anesthesiology
DX: M46.1 Sacroiliitis, not elsewhere classified (principal); Z98.890 Other specified postprocedural states
CPT/HCPCS: 99211

== ENCOUNTER 2017-10-25 09:26 | Day surgery (SDC) | payer MEDICARE, OTHER ==
[2017-10-09 11:28] VITALS: BMI 56.5
[~2017-10-25 09:26] MED LIST changes: -ONDANSETRON 4 MG/2 ML VIAL IVP PRN; -Pre Op ABX Message 1 EACH MISC MISCELLANE ONE; -fentaNYL (PF) 50 MCG/ML 2 ML AMP IV PRN
[2017-10-25 10:05] VITALS: RESP 16; TEMP 97.6
[2017-10-25] MEDS ORDERED: LIDOCAINE 1% 20 ML VIAL (10MG/ML) FOR IV START INTRADERMA ONE (10:06)
[2017-10-25 10:09] LABS: Glucose,Whole Blood 204 mg/dL (75-99)
--- NOTE | 2017-10-25 11:47 | P.PCN ---
Date of Procedure: 10/25/17 Procedure(s) Performed: Preoperative diagnoses= 1-Right sacroiliitis. 2-lumbar spondylosis with lumbar facet arthropathy. Postoperative diagnoses= same as preoperative diagnosis. Procedure= Right sacroiliac joint steroid injection under fluoroscopic guidance. Anesthesia= moderate sedation with Versed 2 mg and fentanyl 50 micrograms and local infiltration with lidocaine 1% 4 ml Estimated blood loss=minimal. Procedure indication= the patient had a history of severe chronic low back pain , diagnosed with sacroiliitis and lumbar sacral facet arthropathy unresponsive to conservative treatment. Procedure description= the patient was seen and identified in the preoperative holding area, risks and benefits and alternative of the procedure and possible complications discussed with the patient, and he agreed with the preceding, patient signed the consent, an IV was started, and vital signs were monitored and were stable throughout the procedure, patient was placed in the prone position or table and the lumbosacral area was prepped and draped with a sterile fashion, vital signs were closely monitored during the procedure, the fluoroscopy camera was placed in the contralateral oblique view on the right sacroiliac joint and the lower part of the joint was identified, local infiltration of the skin and subcutaneous tissue with lidocaine 1% 2 mL then a 22-gauge Quincke-type spinal needle advanced slowly under fluoroscopy and placed in the posterior and inferior border of the right sacroiliac joint, placement confirmed with AP and lateral view, and after appropriate needle placement confirmed and after negative aspiration for heme and CSF and there was no paresthesia during the injection, 3 ml of ropivacaine 0.5% and 40 mg of Kenalog injected after negative aspiration, the needle removed intact Patient tolerated the procedure well without any complication, The patient returned to supine position after the back was cleaned and a Band- Aid applied, the patient transported to recovery room in stable condition and he was monitored for 30 minutes before he was discharged home and then patient was reexamined before going home and patient was discharged in stable condition and patient will follow up with the pain clinic in a few weeks
[2017-10-25] MEDS ORDERED: IV FLUID CONTINUATION 1,000 ML IV ONE (12:03)
--- NOTE | 2017-10-25 12:05 | FL ---
EXAMINATION TYPE: FL guided pain mgmt statistic DATE OF EXAM: 10/25/2017 HISTORY: Pain Rt SI joint injection. 2 sec fluoro, 1 image scanned.
[2017-10-25 12:24] VITALS: BP 120/82; PULSE 87
== END 2017-10-25 12:45 | disposition home or self-care (01) ==
LOC: ORPAIN 09:26
PROVIDERS: ATTEND Specialist
DX: M46.1 Sacroiliitis, not elsewhere classified (principal); M47.816 Spondylosis without myelopathy or radiculopathy, lumbar region
CPT/HCPCS: J3301; G0260; 27096

== ENCOUNTER 2018-01-01 20:47 | Emergency (ER) | payer MEDICARE, OTHER ==
[2018-01-01 20:54] VITALS: BP 136/75; PULSE 92; RESP 18; TEMP 99.6
[2018-01-01 22:32] LABS: Calcium 8.6 mg/dL (8.4-10.2)
--- NOTE | 2018-01-01 22:33 | ED ---
Skin/Abscess/FB HPI - General Chief complaint: Skin/Abscess/Foreign Body Stated complaint: surgical wound opened Time Seen by Provider: 01/01/18 21:28 Source: patient, RN notes reviewed, old records reviewed Mode of arrival: ambulatory Limitations: no limitations - History of Present Illness Initial comments: Patient is a 62-year-old female with a history of total hysterectomy on 12/[address] Dorman at [facility]. Patient reports that she was discharged home today after recently admitted for cellulitis. Patient states that today she noticed drainage from her lower incision site and reports that her wound dehisced. Patient states that she called there and they were told her to come here for evaluation. Patient reports no recent fevers or chills. She denies any significant pain at the incision site. - Related Data Home Medications Medication Instructions Recorded Confirmed Albuterol Inhaler [Ventolin Hfa 2 puff INHALATION RT-QID PRN 03/09/17 01/01/18 Inhaler] Aspirin [Adult Low Dose Aspirin EC] 81 mg PO DAILY 03/09/17 01/01/18 Cyclobenzaprine [Flexeril] 10 mg PO HS 03/09/17 01/01/18 Fluticasone Propionate [Flovent 1 spray EA NOSTRIL DAILY 03/09/17 01/01/18 Diskus] Insulin Glargine [Lantus] 95 unit SQ HS 03/09/17 01/01/18 Lisinopril-Hctz 20-25 mg 1 tab PO DAILY 03/09/17 01/01/18 [Zestoretic 20-25] Pregabalin [Lyrica] 100 mg PO TID 03/09/17 01/01/18 glipiZIDE [Glucotrol] 10 mg PO AC-BID 03/09/17 01/01/18 metFORMIN HCL 1,000 mg PO BID 03/09/17 01/01/18 Ibuprofen [Motrin] 600 mg PO TID 01/01/18 01/01/18 Insulin Lispro [humaLOG Kwikpen] 10 unit SQ AC-TID 01/01/18 01/01/18 Linezolid [Zyvox] 600 mg PO Q12H 01/01/18 01/01/18 Metoprolol Tartrate [Lopressor] 25 mg PO BID 01/01/18 01/01/18 Allergies Allergy/AdvReac Type Severity Reaction Status Date / Time No Known Allergies Allergy Verified 01/01/18 21:53 Review of Systems ROS Statement: Those systems with pertinent positive or pertinent negative responses have been documented in the HPI. ROS Other: All systems not noted in ROS Statement are negative. Past Medical History Past Medical History: Diabetes Mellitus, GERD/Reflux, Hyperlipidemia, Hypertension, Pneumonia Additional Past Medical History / Comment(s): heart murmur, severe back pain History of Any Multi-Drug Resistant Organisms: None Reported Past Surgical History: Appendectomy, Hernia Repair, Hysterectomy, Tubal Ligation Additional Past Surgical History / Comment(s): bassam cataracts, PAIN CLINIC PROCEDURES, D&C Past Anesthesia/Blood Transfusion Reactions: No Reported Reaction Past Psychological History: No Psychological Hx Reported Smoking Status: Former smoker Past Alcohol Use History: None Reported Past Drug Use History: None Reported - Past Family History Father Family Medical History: Cancer General Exam - General Exam Comments Initial Comments: 62-year-old female. Alert and oriented. Patient appears in no acute distress. Limitations: no limitations General appearance: alert, in no apparent distress Head exam: Present: atraumatic, normocephalic, normal inspection Eye exam: Present: normal appearance, PERRL, EOMI. Absent: scleral icterus, conjunctival injection, periorbital swelling ENT exam: Present: normal exam, mucous membranes moist Neck exam: Present: normal inspection. Absent: tenderness, meningismus, lymphadenopathy Respiratory exam: Present: normal lung sounds bilaterally. Absent: respiratory distress, wheezes, rales, rhonchi, stridor Cardiovascular Exam: Present: regular rate, normal rhythm, normal heart sounds. Absent: systolic murmur, diastolic murmur, rubs, gallop, clicks GI/Abdominal exam: Present: soft, normal bowel sounds, other (Patient has vertical incision site over the mid abdomen. There is evidence of wound dehiscence over the lower 6 cm, with approximately 2 cm wide dehiscence. Large panus noted. ). Absent: distended, tenderness, guarding, rebound, rigid Extremities exam: Present: normal inspection, full ROM, normal capillary refill. Absent: tenderness, pedal edema, joint swelling, calf tenderness Back exam: Present: normal inspection Neurological exam: Present: alert, oriented X3, CN II-XII intact Psychiatric exam: Present: normal affect, normal mood Skin exam: Present: warm, dry, intact, normal color. Absent: rash Course Vital Signs 01/01/18 20:48 Temperature 99.6 F Pulse Rate 92 Respiratory 18 Rate Blood Pressure 136/75 O2 Sat by Pulse 97 Oximetry - Reevaluation(s) Reevaluation #1: 01/01/18 22:33 Discussed the case with Dr. Espinal the hotel reservationist fellow that had been in charge of patient's care. Medical Decision Making - Medical Decision Making Is a 62-year-old female with chief complaint of surgical wound dehiscence today. She was discharged home from [facility] by her surgeon Dr. Dorman today. When she was moving she notes she had some drainage around her abdomen. She felt a small hole. She came here for reevaluation. She has a 6 cm x 2 cm lower wound dehiscence over her pannus. Patient's case discussed with Dr. Espinal the resident on-call for Dr. Dorman. I did send a picture to Dr. Espinal. Wound will likely of poor healing in general due to diabetes and a second surgery with significant pannus. Her white blood cell count was normal and no acute changes. Chemistry panel did show slight evidence of elevated potassium of 5.8. But this was hemolyzed. Dr. Espinal and I recommend away have the Patient do wet-to-dry dressings. She has a follow-up on Monday with the surgical team. I discussed that she can return if the wound is having further dehiscence and she feels that she needs to be reevaluated. Patient given proper wound dressing techniques. Return parameters were discussed. - Lab Data Result diagrams: 01/01/18 22:10 01/01/18 22:10 Lab Results 01/01/18 01/01/18 Range/Units 22:10 22:10 WBC 10.2 (3.8-10.6) k/uL RBC 2.86 L (3.80-5.40) m/uL Hgb 8.8 L (11.4-16.0) gm/dL Hct 27.7 L (34.0-46.0) % MCV 96.9 (80.0-100.0) fL MCH 30.8 (25.0-35.0) pg MCHC 31.8 (31.0-37.0) g/dL RDW 17.3 H (11.5-15.5) % Plt Count 358 (150-450) k/uL Neutrophils % 56 % Lymphocytes % 28 % Monocytes % 7 % Eosinophils % 3 % Basophils % 1 % Neutrophils # 5.7 (1.3-7.7) k/uL Lymphocytes # 2.9 (1.0-4.8) k/uL Monocytes # 0.7 (0-1.0) k/uL Eosinophils # 0.3 (0-0.7) k/uL Basophils # 0.1 (0-0.2) k/uL Manual Slide Review Performed Polychromasia Present Hypochromasia Moderate Poikilocytosis Slight Poikilocytosis (manual Present Anisocytosis Slight Macrocytosis Slight Target Cells Present Sodium 136 L (137-145) mmol/L Potassium 5.8 H (3.5-5.1) mmol/L Chloride 105 (98-107) mmol/L Carbon Dioxide 25 (22-30) mmol/L Anion Gap 6 mmol/L BUN 20 H (7-17) mg/dL Creatinine 1.46 H (0.52-1.04) mg/dL Est GFR (CKD-EPI)AfAm 44 (>60 ml/min/1.73 sqM) Est GFR (CKD-EPI)NonAf 38 (>60 ml/min/1.73 sqM) Glucose 158 H (74-99) mg/dL Calcium 8.6 (8.4-10.2) mg/dL Disposition Clinical Impression: Surgical wound dehiscence Disposition: HOME SELF-CARE Condition: Good Instructions: Wound Dehiscence (ED) Additional Instructions: Continue as prescribed antibiotics. Patient should follow-up with the clinic in the morning to find out what time year appointment is on Monday. Patient should continue wet-to-dry dressings over the area. Return to the emergency department if any alarming signs or symptoms occur. Is patient prescribed a controlled substance at d/c from ED?: No Referrals: Lon Lopez DO [Primary Care Provider] - 1-2 days Time of Disposition: 23:18
[2018-01-01 22:44] LABS: Potassium 5.8 mmol/L (3.5-5.1)
[2018-01-01 22:54] LABS: Anisocytosis Slight; Basophils # (A) 0.1 k/uL (0-0.2); Basophils % (A) 1 %; Eosinophils # (A) 0.3 k/uL (0-0.7); Eosinophils % (A) 3 %; HCT 27.7 % (34.0-46.0); HGB 8.8 gm/dL (11.4-16.0); Hypochromasia Moderate; Lymphocytes # (A) 2.9 k/uL (1.0-4.8); Lymphocytes % (A) 28 %; MCH 30.8 pg (25.0-35.0); MCHC 31.8 g/dL (31.0-37.0); MCV 96.9 fL (80.0-100.0); Macrocytosis Slight; Monocytes # (A) 0.7 k/uL (0-1.0); Monocytes % (A) 7 %; Neutrophils # (A) 5.7 k/uL (1.3-7.7); Neutrophils % (A) 56 %; Platelet Count 358 k/uL (150-450); Poikilocytosis Slight; RBC 2.86 m/uL (3.80-5.40); RDW 17.3 % (11.5-15.5); WBC 10.2 k/uL (3.8-10.6)
[2018-01-01 23:09] LABS: Poikilocytosis (M) Present; Polychromasia Present; Target Cells Present
== END 2018-01-01 23:42 | disposition home or self-care (01) ==
LOC: EC 20:47
DX: T81.31XA Disruption of external operation (surgical) wound, not elsewhere classified, initial encounter (principal); E87.5 Hyperkalemia; E11.9 Type 2 diabetes mellitus without complications; K21.9 Gastro-esophageal reflux disease without esophagitis; E78.5 Hyperlipidemia, unspecified; I10 Essential (primary) hypertension; Z87.891 Personal history of nicotine dependence; Z79.1 Long term (current) use of non-steroidal anti-inflammatories (NSAID); Z79.82 Long term (current) use of aspirin; Z79.51 Long term (current) use of inhaled steroids; Z79.899 Other long term (current) drug therapy; Z90.710 Acquired absence of both cervix and uterus
CPT/HCPCS: 36415; 80048; 85025; 87070; 87205; 99283

== ENCOUNTER → 2018-06-28 | Outpatient (CLI) | payer MEDICARE, OTHER ==
--- NOTE | 2018-06-28 18:57 | CONS ---
CONSULTATION DATE OF SERVICE: 06/28/2018. 63-year-old lady who has been evaluated in the sleep center for possible obstructive sleep apnea-hypopnea syndrome. HISTORY OF PRESENT ILLNESS SLEEP WAKE EVALUATION: Patient goes to bed around 8:30/9 pm and gets out of bed 5:00 a.m. FALLING ASLEEP: She does have problem with falling asleep, although no TV in bedroom. DURING SLEEP: She usually sleeps on the side position by herself with loud snoring and while she was in the hospital recently they put her on the CPAP treatment and recommended her to be evaluated in sleep center. The patient wakes up from sleep 3 times with 2 episodes of nocturia. Sometimes she dreams after closing her eyes. No history of sleep paralysis or cataplexy. DURING THE DAY/SLEEP WAKE EVALUATION: During the day, patient may be too sleepy. [place] Sleepiness Scale significantly increased to 12. She takes 2 naps during the day about 11:00 am and 1:00 pm. She usually is restored after naps. Does see any vivid dreams during naps. PAST MEDICAL HISTORY: Positive for recent supraventricular tachycardia episode with BLUE CODE in the hospital, hypertension, diabetes mellitus, history of peripheral neuropathy related to diabetes probably. History of asthmatic bronchitis. PAST SURGICAL HISTORY: Total hysterectomy for bleeding in November of 2017, tubal ligation, bilateral cataract surgery. SOCIAL HISTORY: Positive for smoking for about 15 pack years, quit about 32 years ago. Alcohol consumption none at the present time. FAMILY HISTORY: Hypertension, hyperlipidemia, epilepsy, stroke, arthritis, problem, cancer, diabetes, acid reflux, mental illness, restless legs. REVIEW OF SYSTEMS: Multiple awakenings from sleep, sleepiness during the day, snoring. EXAM: GENERAL: 63 -year-old pleasant lady without distress. VITAL SIGNS: BP 111/62, HR 73, RR 22, height 5 feet and 3, weight 219.8 with a mass index 51.1, temperature 97.2, oxygen saturation at room air 97%. HEENT: Oropharynx showed extremely low position of soft palate. Mallampati 4. Wide neck 16-1/2 inches in circumference. NECK Supple, no JVD. Thyroid is not palpable. LUNGS Clear to percussion and to auscultation. Good air exchange. No wheezing or rhonchi. HEART S1, S2 regular. No murmurs, gallops, or rubs. ABDOMEN: Obese. Soft and nontender. Bowel sounds are present. No organomegaly appreciated. EXTREMITIES No clubbing or cyanosis. Some pain during of lower legs. 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 Cranial nerves 2 to 7 intact. There is no fasciculation or atrophy. noted. No focal deficits observed. IMPRESSION: 1. Loud snoring, multiple awakenings from sleep, extremely low position of soft palate, wide neck, sleepiness. [place] Sleepiness Scale is 12. Obstructive sleep apnea-hypopnea syndrome. 2. Positive history of questionable hypnagogic hallucinations, most probably insufficient amount of REM sleep with possible REM rebound but differential diagnosis should include hypersomnia. Also patient feel refreshed after naps. 3. Morbid obesity. BMI 51.14. 4. Hypertension. 5. Diabetes mellitus. 6. History of recent supraventricular tachycardia episodes with BLUE CODE in the hospital. 7. History of peripheral neuropathy, probably secondary to diabetes. 8. Status post total hysterectomy for bleeding in November of 2017. 9. History of asthmatic bronchitis. 10.Status post appendectomy. 11.Status post bilateral cataract surgery. 12.Status post tubal ligation in the past. PLAN: 1. Polysomnography for evaluation of patient's breathing during sleep. 2. CPAP/BiPAP titration if sleep study confirms obstructive sleep apnea-hypopnea syndrome. 3. Preferable position during sleep on the side. 4. No driving if patient feels any sleepiness. 5. I will see patient for follow up visit to explain results of testing and following plan. Thank you very much for referring this patient for consultation. Sincerely, Miguel Delaney MD, PhD, FAASM Diplomat of [place] [place] [employer] Emr Analyst of [facility] [place] MMODL / IJN: [id number] /
== END | disposition home or self-care (01) ==
LOC: SLEEP 11:30
PROVIDERS: ATTEND Internal Medicine
DX: G47.33 Obstructive sleep apnea (adult) (pediatric) (principal); R35.1 Nocturia; E66.01 Morbid (severe) obesity due to excess calories; I10 Essential (primary) hypertension; E11.42 Type 2 diabetes mellitus with diabetic polyneuropathy; Z90.710 Acquired absence of both cervix and uterus; Z87.09 Personal history of other diseases of the respiratory system; Z90.89 Acquired absence of other organs; Z98.42 Cataract extraction status, left eye; Z98.41 Cataract extraction status, right eye; Z68.43 Body mass index [BMI] 50.0-59.9, adult; Z86.74 Personal history of sudden cardiac arrest; Z98.51 Tubal ligation status; Z86.79 Personal history of other diseases of the circulatory system; Z87.891 Personal history of nicotine dependence; Z79.4 Long term (current) use of insulin; Z79.84 Long term (current) use of oral hypoglycemic drugs; Z79.82 Long term (current) use of aspirin; Z79.899 Other long term (current) drug therapy
CPT/HCPCS: 99211

== ENCOUNTER → 2018-07-19 | Outpatient (CLI) | payer MEDICARE, OTHER ==
--- NOTE | 2018-07-19 09:45 | XR ---
EXAMINATION TYPE: XR shoulder complete RT DATE OF EXAM: 07/19/2018 COMPARISON: NONE HISTORY: Pain TECHNIQUE: Right Shoulder examined in 3 views. FINDINGS: The humeral head articulates with the glenoid. The acromio-clavicular junction is normal. No acute fractures or dislocations are evident. A follow up study can be performed 7-10 days from acute trauma for continued pain. IMPRESSION: 1. Normal right Shoulder
== END ==
LOC: RADXRMAIN 09:08
PROVIDERS: ATTEND Family Medicine
DX: M25.511 Pain in right shoulder (principal)

== ENCOUNTER → 2020-09-24 | Outpatient (CLI) | payer MEDICARE, OTHER ==
--- NOTE | 2020-09-24 09:02 | XR ---
EXAMINATION TYPE: XR foot complete LT, 3 views DATE OF EXAM: 09/24/2020 Comparison: None Clinical History: 65-year-old female M79.672 Pain in left foot G57.52 Tarsal tunnel syn Findings: Mild degenerative spurring noted at the tibial talar joint. Bony irregularity and fragmentation at th e posterior calcaneus and some mild soft tissue thickening at the Achilles insertion. Moderate sized plantar heel spur. Subtalar joint is aligned. Some generalized soft tissue swelling is noted. No acut e fracture, subluxation, dislocation seen. Impression: 1. Mild degenerative spurring at the tibiotalar joint. 2. Chronic bony fragmentation and irregularity at the posterior calcaneus corresponding to the Achill es insertion. There is some soft tissue thickening here as well. Findings suggest previous partial av ulsion injury and enthesopathy. 3. Moderate-sized plantar heel spur. 4. Some generalized soft tissue swelling.
== END | disposition home or self-care (01) ==
LOC: RADXRMAIN 07:50
PROVIDERS: ATTEND Podiatrist Foot Surgery
DX: M77.32 Calcaneal spur, left foot (principal); M79.89 Other specified soft tissue disorders; M89.8X7 Other specified disorders of bone, ankle and foot; G57.52 Tarsal tunnel syndrome, left lower limb